=== PATIENT | male | born 1935 | race Caucasian/White ===

== ENCOUNTER 2017-12-15 08:01 | Emergency (ER) | payer OTHER, MEDICARE ==
--- NOTE | 2017-12-15 09:21 | EDPHY ---
H & P Stated Complaint: fell hit head, on Plavix - Medical/Surgical History Hx Asthma: No Hx Chronic Respiratory Disease: No Hx Diabetes: No Hx Cardiac Disease: Yes Hx Renal Disease: No Hx Cirrhosis: No Hx Alcoholism: No Hx HIV/AIDS: No Hx Splenectomy or Spleen Trauma: No Other PMH: HTN, stroke - Social History Smoking Status: Never smoked Time Seen by Provider: 12/15/17 08:30 Constitutional: Initial Vital Signs Temperature (C) 36.8 C 12/15/17 08:07 Heart Rate 79 12/15/17 08:07 Respiratory Rate 18 12/15/17 08:07 Blood Pressure 185/95 H 12/15/17 08:07 O2 Sat (%) 94 12/15/17 08:07 O2 Delivery Mode Room Air Allergies/Adverse Reactions: propoxyphene [From Darvon] Allergy (Verified 12/15/17 08:06) Home Medications: Medication Instructions Recorded HCTZ (*) 12/15/17 Lisinopril 12/15/17 Plavix 12/15/17 Medical Decision Making - Diagnostics Imaging: Discussed imaging studies w/ government property inspector Radiologist, I viewed and interpreted images myself - Diagnostics Imaging Results: Imaging Impressions Head CT 12/15/17 08:27 Impression: Underlying cerebral and cerebellar atrophy and white matter disease, with remote ischemic injury to the right basal ganglia and centrum semiovale. No acute intracranial hemorrhage, cortical ischemia, mass or mass effect. Results discussed with Dr. Jose Wolf at 9:00 AM at the time of the interpretation. Procedures: Procedure: Laceration repair. Verbal consent was obtained from the patient. The 9 cm x 2 cm, simple, deep laceration on the forehead was anesthetized in the usual fashion 6 mL of 1% lidocaine with epinephrine. The wound was irrigated, draped and explored to its base with a gloved finger. There were no deep structures involved. No tendon injury was identified. The wound was repaired with #7, 5-0 Prolene in simple interrupted pattern. Surgifoam and clean sterile dressing applied. The procedure was performed by myself. (Carlie Arias) ED Course/Re-evaluation: CHIEF COMPLAINT: Head injury HISTORY OF PRESENT ILLNESS: The patient is an 82 y/o male on Plavix with a history of CVA with residual left-sided deficits who arrives with his for evaluation of a head injury secondary to a fall this morning. He says he was getting out of bed this morning and tripped on the rug causing him to fall and strike the top of his head on corner of the nightstand. He did not lose consciousness. He denies any other injuries, acute weakness, paresthesias, vision changes, or other complaints. REVIEW OF SYSTEMS: A comprehensive 10 system review of systems is otherwise negative aside from elements mentioned in the history of present illness and medical decision making. PHYSICAL EXAM: HR, BP, O2 Sat, RR. Temp noted General Appearance: Alert, well hydrated, appropriate, and non-toxic appearing. Head: 9cm x2cm deep, linear laceration to top of scalp. Eyes: Pupils equal, round, reactive to light and accommodation, EOMI, no trauma , no injection. Ears: Clear bilaterally, no perforation, normal landmarks Nose: Atraumatic, no rhinorrhea, clear. Throat: There is no erythema or exudates, no lesions, normal tonsils, mucus membranes moist. Neck: Supple, non-tender, no lymphadenopathy. Respiratory: No retractions, no distress, no wheezes, and no accessory muscle use. Lungs are clear to auscultation bilaterally. Cardiovascular: Regular rate and rhythm, no murmurs, rubs, or gallops. Good capillary refill all extremities. Gastrointestinal: Abdomen is soft, non-tender, non-distended, no masses, no rebound, no guarding, no peritoneal signs. Musculoskeletal: Normal active ROM of all extremities, atraumatic. Neurological: Alert, appropriate, and interactive. Nonfocal apart from baseline left-sided weakness. Skin: No rashes, good turgor, no nodules on palpation. PAST MEDICAL HISTORY: CVA with left-sided weakness - Plavix PAST SURGICAL HISTORY: Noncontributory SOCIAL HISTORY: at bedside. Daughter is radiologist at . DIAGNOSTICS/PROCEDURES/CRITICAL CARE TIME: Head CT: negative for acute process. Laceration repair by NICHOLAS Arias. DIFFERENTIAL DIAGNOSIS: The differential diagnosis for the patient's head injury included but was not limited to concussion, skull fracture, intra- parenchymal contusion, subarachnoid, subdural and epidural hematoma. MEDICAL DECISION MAKING: This is an 82 y/o male on Plavix with residual left-sided weakness from a CVA who presents with an isolated large laceration to the top of his scalp. Neuro exam is at baseline. Due to age and anticoagulation status, head CT performed to rule out hemorrhage, which was negative for acute findings. Plan for wound care and repair by NICHOLAS Arias then discharge home with standard care and follow up instructions. (Jose Wolf) Departure - Departure Disposition: Home, Routine, Self-Care Clinical Impression: Scalp laceration Qualifiers: Encounter type: initial encounter Qualified Code(s): S01.01XA - Laceration without foreign body of scalp, initial encounter Condition: Good Instructions: Laceration (ED) Additional Instructions: 1. Return for suture removal in 5-7 days. 2. Do not remove dressing for the next 2 days. Then okay to clean gently with soap and water. Apply thin layer of Bacitracin to wound until healed. 3. Follow up with your primary care provider as needed. 4. Return to the ED for severe pain, new weakness or numbness, speech difficulty , vision changes, fever, or other worsening of condition. Referrals: Demond Gabriel MD [Primary Care Provider] - As per Instructions Report Scribed for: Jose Wolf Report Scribed by: Zuleyma Torres Date of Report: 12/15/17 Time of Report: 09:09
[2017-12-15 10:15] VITALS: BP 173/94
== END 2017-12-15 10:16 | disposition home or self-care (01) ==
PROC: 0HQ1XZZ Repair Face Skin, External Approach (ICD-10-PCS; principal; 2017-12-15)
DX: S01.01XA Laceration without foreign body of scalp, initial encounter (principal); I10 Essential (primary) hypertension; W01.198A Fall on same level from slipping, tripping and stumbling with subsequent striking against other object, initial encounter; Y92.013 Bedroom of single-family (private) house as the place of occurrence of the external cause; Z86.73 Personal history of transient ischemic attack (TIA), and cerebral infarction without residual deficits

== ENCOUNTER 2017-12-16 19:43 | Emergency (ER) | payer OTHER, MEDICARE ==
[2017-12-16] MEDS ORDERED: LISINOPRIL/HCTZ 20/12.5MG 1 EA TAB PO SCH (20:00)
--- NOTE | 2017-12-16 20:06 | EDPHY ---
H & P Stated Complaint: "HIGH BP", fall yesterday Time Seen by Provider: 12/16/17 19:55 HPI/ROS: CHIEF COMPLAINT: My blood pressure HISTORY OF PRESENT ILLNESS: The patient is a 82-year-old man who fell yesterday getting out of bed and hit his head on the nightstand. He sustained a laceration to his upper forehead that was repaired here. He had a head CT that was negative. He has had increased bruising that has gravitated to his nose and eyes today. The patient denies headache. No altered mental status. No neck pain. The patient's asked her friend who is a retired physician to come and tell them if the bruising was normal. He is on Plavix. While he was there the retired physician checked the patient's blood pressure was 200/ 90. His baseline blood pressure was around 140/80. He suggested the patient come to the ER because he has a history of stroke several years ago. The patient remains asymptomatic. No chest pain or shortness of breath. He takes hydrochlorothiazide, losartan and lisinopril all in the morning. He has not taken any extra doses this evening. No double vision or hearing changes. Severity: Minimal Modifying factors: None REVIEW OF SYSTEMS: Constitutional: denies: chills, fever, recent illness, recent injury EENTM: See HPI denies: blurred vision, double vision, nose congestion Respiratory: denies: cough, shortness of breath Cardiac: denies: chest pain, irregular heart rate, lightheadedness, palpitations Gastrointestinal/Abdominal: denies: abdominal pain, diarrhea, nausea, vomiting, blood streaked stools Genitourinary: denies: dysuria, frequency, hematuria, pain Musculoskeletal: denies: joint pain, muscle pain Skin: See HPI Neurological: denies: headache, numbness, paresthesia, tingling, dizziness, weakness Hematologic/Lymphatic: denies: blood clots, easy bleeding, easy bruising Immunologic/allergic: denies: HIV/AIDS, transplant 10 systems reviewed and negative except as noted EXAM: GENERAL: Well-appearing, well-nourished and in no acute distress. HEAD: Bruising to the nasal bridge in both eyes. Laceration repaired. EYES: Pupils equal round and reactive to light, extraocular movements intact, sclera anicteric, conjunctiva are normal. Vision normal. ENT: TMs normal, nares patent, oropharynx clear without exudates. Moist mucous membranes. NECK: Normal range of motion, supple without lymphadenopathy or JVD. LUNGS: Breath sounds clear to auscultation bilaterally and equal. No wheezes rales or rhonchi. HEART: Regular rate and rhythm without murmurs, rubs or gallops. ABDOMEN: Soft, nontender, normoactive bowel sounds. No guarding, no rebound. No masses appreciated. BACK: No CVA tenderness, no spinal tenderness, step-offs or deformities EXTREMITIES: Normal range of motion, no pitting or edema. No clubbing or cyanosis. NEUROLOGICAL: Cranial nerves II through XII grossly intact. Normal speech, normal gait. 5/5 strength, normal movement in all extremities, normal sensation , normal reflexes PSYCH: Normal mood, normal affect. SKIN: Bruising as above Source: Patient Exam Limitations: No limitations - Personal History Current Tetanus Diphtheria and Acellular Pertussis (TDAP): Yes - Medical/Surgical History Hx Asthma: No Hx Chronic Respiratory Disease: No Hx Diabetes: No Hx Cardiac Disease: Yes Hx Renal Disease: No Hx Cirrhosis: No Hx Alcoholism: No Hx HIV/AIDS: No Hx Splenectomy or Spleen Trauma: No Other PMH: HTN, stroke 2013 - Family History Significant Family History: No pertinent family hx - Social History Smoking Status: Never smoked Alcohol Use: Sober Drug Use: None Constitutional: Initial Vital Signs Temperature (C) 36.6 C 12/16/17 19:44 Heart Rate 83 12/16/17 19:44 Respiratory Rate 94 H 12/16/17 19:44 Blood Pressure 217/96 H 12/16/17 19:44 O2 Sat (%) 95 12/16/17 19:44 O2 Delivery Mode Room Air Allergies/Adverse Reactions: propoxyphene [From Darvon] Allergy (Verified 12/16/17 19:44) Home Medications: Medication Instructions Recorded HCTZ (*) 12/15/17 Lisinopril 12/15/17 Plavix 12/15/17 Citracal 12/16/17 Escitalopram Oxalate 12/16/17 Losartan Potassium 12/16/17 SIMVASTATIN 12/16/17 Medical Decision Making ED Course/Re-evaluation: The patient's is concerned about his elevated blood pressure. The patient is asymptomatic. We discussed the bruising in his face which is completely normal. I advised them that it may worsen tomorrow. We discussed the the risk of treating hypertension acutely when he is asymptomatic and the risk of dropping his blood pressure too low. We agreed to give him an extra dose of his medication this evening and observe. 9:30 p.m. the patient's blood pressure is now 180/80. He remains asymptomatic and is eager to go home. Encouraged him to return to his normal regimen and keep a journal of his blood pressures to follow-up. Patient and for grateful and declines further workup or testing at this time. Differential Diagnosis: Partial list of the Differential diagnosis considered include but were not limited to; hypertension, anxiety and although unlikely based on the history and physical exam, I also considered intracranial hemorrhage, fracture, CVA. I discussed these differential diagnoses and the plan with the patient as well as the usual and expected course. The patient understands that the diagnosis is provisional and that in medicine we are not always correct and that further workup is often warranted. Usual and customary warnings were given. All of the patient's questions were answered. The patient was instructed to return to the emergency department should the symptoms at all worsen or return, otherwise to followup with the physician as we discussed. - Data Points Medications Given: Discontinued Medications Lisinopril/HCTZ (Zestoretic) 1 ea PO DAILY TITA Stop: 06/14/18 19:59 Last Admin: 12/16/17 21:17 Dose: Not Given Lisinopril/HCTZ (Zestoretic) 1 ea PO EDNOW ONE Stop: 12/16/17 20:31 Last Admin: 12/16/17 20:33 Dose: 1 ea Lisinopril/HCTZ (Zestoretic) 1 ea PO EDNOW ONE Stop: 12/16/17 20:09 Last Admin: 12/16/17 21:17 Dose: Not Given Departure - Departure Disposition: Home, Routine, Self-Care Clinical Impression: Anxiety about health Hypertension Qualifiers: Hypertension type: essential hypertension Qualified Code(s): I10 - Essential ( primary) hypertension Facial bruising Qualifiers: Encounter type: subsequent encounter Qualified Code(s): S00.83XD - Contusion of other part of head, subsequent encounter Condition: Fair Instructions: Contusion in Adults (ED), Hypertension (ED) Referrals: Demond Gabriel MD [Primary Care Provider] - As per Instructions
[2017-12-16] MEDS ORDERED: LISINOPRIL/HCTZ 20/12.5MG 1 EA TAB PO ONE ×2 (20:08→20:30)
[2017-12-16 21:20] VITALS: BP 188/88
== END 2017-12-16 21:43 | disposition home or self-care (01) ==
DX: I10 Essential (primary) hypertension (principal); Z86.73 Personal history of transient ischemic attack (TIA), and cerebral infarction without residual deficits; S01.01XA Laceration without foreign body of scalp, initial encounter; W01.198A Fall on same level from slipping, tripping and stumbling with subsequent striking against other object, initial encounter; Y92.013 Bedroom of single-family (private) house as the place of occurrence of the external cause

== ENCOUNTER 2018-06-17 18:22 | Inpatient (IN) | payer OTHER, MEDICARE ==
[2018-06-17] MEDS ORDERED: NS 500 ML IV ONE (18:44)
--- NOTE | 2018-06-17 18:46 | CPEKG ---
Test Reason : OPEN Blood Pressure : / mmHG Vent. Rate : 066 BPM Atrial Rate : 064 BPM P-R Int : 195 ms QRS Dur : 162 ms QT Int : 491 ms P-R-T Axes : 068 -58 012 degrees QTc Int : 515 ms Sinus rhythm Right bundle branch block Inferior infarct, old Confirmed by Jolene Gutierrez ([id number]) on 06/17/2018 6:46:02 PM Referred By: JOLENE GUTIERREZ Confirmed By:Jolene Gutierrez
--- NOTE | 2018-06-17 18:47 | EDPHY ---
H & P Time Seen by Provider: 06/17/18 18:33 HPI/ROS: Chief complaint. Shortness of breath HPI. Patient is an 83-year-old male with shortness of breath for 5 days. He is quite comfortable at rest but has dyspnea with walking a short distance across the room as well as with talking as stop and catch his breath. No fever or cough. Does not have chest discomfort. No discomfort with deep breathing. No unusual leg pain or swelling. No similar symptoms previously no abdominal pain or vomiting or diarrhea. He was seen by his PCP earlier today and had a chest x-ray that showed no pneumonia. He had a normal CBC. D-dimer slightly elevated at 0.58. BNP mildly elevated at 502. His creatinine was normal at 1.0 and troponin was normal. He was referred here for concerns of pulmonary embolus ROS 10 systems were reviewed and negative with the exception of the elements mentioned in the history of present illness Past Medical/Surgical History: Hypertension and CVA in 2012 Social History: , nonsmoker, no alcohol Smoking Status: Never smoked Physical Exam: General Appearance: Alert pleasant well-developed male mild distress vital signs significant for blood pressure 216/94. O2 saturation 93% on room air Eyes: Pupils equal and round no pallor or injection. ENT, Mouth: Mucous membranes are moist. Respiratory: There are no retractions, lungs are clear to auscultation. Cardiovascular: Regular rate and rhythm. Gastrointestinal: Abdomen is soft and nontender, no masses, bowel sounds normal. Neurological: Awake and alert, sensory and motor exams grossly normal. Skin: Warm and dry, no rashes. Musculoskeletal: Neck is supple nontender. Extremities symmetrical, full range of motion. Trace pedal edema Psychiatric: Patient is oriented X 3, there is no agitation. Constitutional: Initial Vital Signs Temperature (C) 36.3 C 06/17/18 18:25 Heart Rate 74 06/17/18 18:25 Respiratory Rate 18 06/17/18 18:25 Blood Pressure 216/94 H 06/17/18 18:25 O2 Sat (%) 93 06/17/18 18:25 O2 Delivery Mode Room Air Allergies/Adverse Reactions: propoxyphene [From Darvon] Allergy (Verified 12/16/17 19:44) Home Medications: Medication Instructions Recorded Clopidogrel Bisulfate [Plavix (*)] 75 mg PO DAILY 06/17/18 Escitalopram Oxalate [Lexapro] 10 mg PO HS 06/17/18 Herbals/Supplements -Info Only 1 ea PO DAILY 06/17/18 Hydrochlorothiazide [HCTZ (*)] 25 mg PO DAILY 06/17/18 Leuprolide Acetate [Lupron Depot] 11.25 mg IM .[id number] 06/17/18 Losartan Potassium 100 mg PO DAILY 06/17/18 Simvastatin [Zocor] 40 mg PO HS 06/17/18 Medical Decision Making - Diagnostics EKG Interpretation: EKG interpreted by me shows normal sinus rhythm normal interval with left axis deviation. Right bundle branch block present. No significant ST elevation or depression. No arrhythmia. The rate is 66 No previous EKG for comparison Imaging Results: Imaging Impressions Chest/Thorax CTA 06/17/18 18:45 Impression: 1. No evidence for acute pulmonary embolism, aortic dissection, or pneumonia. Anthony Gutierrez was notified of these findings by telephone at 7:56 PM on 06/17/2018 Chest x-ray from earlier today reviewed by me and I agree no evidence for pneumonia CT chest significant for emphysema. No evidence for PE, aortic dissection or pneumonia Procedures: IV normal saline. 500 cc fluid bolus prior to IV contrast for CT chest Repeat troponin is 0 ED Course/Re-evaluation: Re-evaluation at 8:00 p.m.. Patient and I discussed imaging lab EKG findings. We discussed treatment plan including recommendation for admission. He expresses understanding and agreement I consulted and discussed the case with , hospitalist, who agrees to the admission Differential Diagnosis: I considered pulmonary embolus and acute coronary syndrome. This is likely COPD exacerbation and mild CHF. - Data Points Laboratory Results: 06/17/18 18:51 POC Troponin I 0.00 ng/mL ng/mL (0.00-0.08) Medications Given: Discontinued Medications Albuterol/Ipratropium (Duoneb) 3 ml IH EDNOW ONE Stop: 06/17/18 20:05 Last Admin: 06/17/18 20:07 Dose: 3 ml Sodium Chloride (Ns) 500 mls @ 1,000 mls/hr IV EDNOW ONE PRN Reason: Protocol Stop: 06/17/18 19:13 Last Admin: 06/17/18 18:53 Dose: 500 mls Methylprednisolone Sodium Succinate (Solu-Medrol) 125 mg IVP EDNOW ONE Stop: 06/17/18 20:05 Last Admin: 06/17/18 20:07 Dose: 125 mg Point of Care Test Results: Chemistry 06/17/18 18:51 POC Troponin I 0.00 ng/mL ng/mL (0.00-0.08) Departure - [facility] Clinical Impression: Dyspnea Qualifiers: Dyspnea type: dyspnea on exertion Qualified Code(s): R06.09 - Other forms of dyspnea Condition: Good
[2018-06-17] MEDS ORDERED: IOPAMIDOL (ISOVUE 370) 100 ML BTL IV ONE (18:55)
[2018-06-17] MEDS ORDERED: IPRATROPIUM/ALBUTEROL 3 ML DEYVIAL IH ONE (20:04)
[2018-06-17] MEDS ORDERED: methylPREDNISolone SOD SUCC 125 MG/2 ML VIAL IVP ONE (20:04)
[2018-06-17] MEDS ORDERED: ACETAMINOPHEN 325 MG TAB PO PRN (23:05)
[2018-06-17] MEDS ORDERED: ONDANSETRON 4 MG/2 ML VIAL IVP PRN (23:05)
[2018-06-17] MEDS ORDERED: ONDANSETRON DISINTEGRATING 4 MG TAB PO PRN (23:05)
[2018-06-17] MEDS ORDERED: ALBUTEROL 3 ML DEYVIAL IH PRN (23:05)
[2018-06-17] MEDS: hydrALAZINE 10 MG TAB PO PRN (23:59)
--- NOTE | 2018-06-18 01:03 | PDGENHP ---
History and Physical - Chief Complaint Shortness of breath - History of Present Illness Source-patient provides history appears reliable. EMR was reviewed and case discussed with ED provider. HPI-this very pleasant 83-year-old gentleman with past medical history significant for prostate cancer in remission, HLD, HTN, depression, history CVA in 2012 on Plavix who presents emergency department today at recommendation of his PCP Dr. Gabriel for evaluation of shortness of breath. Patient reports that he has had progressive dyspnea on exertion for the past 5 days. Denies any fevers, chills, cough, chest pain or pleurisy. Patient also denies any nausea vomiting diarrhea. Patient reports that he did not really appreciate any symptoms until his in his daughter commented on his apparent dyspnea on exertion. Patient does have a 50 pack-year history. He quit smoking in 2013 following a stroke. Patient denies any lower extremity edema, orthopnea, PND. History Information - Allergies/Home Medication List Allergies/Adverse Reactions: propoxyphene [From Darvon] Allergy (Verified 12/16/17 19:44) Home Medications: Clopidogrel Bisulfate [Plavix (*)] 75 mg PO DAILY 06/17/18 [Last Taken 06/17/18] Escitalopram Oxalate [Lexapro] 10 mg PO HS 06/17/18 [Last Taken 06/16/18] Herbals/Supplements -Info Only 1 ea PO DAILY 06/17/18 [Last Taken Unknown] Hydrochlorothiazide [HCTZ (*)] 25 mg PO DAILY 06/17/18 [Last Taken 06/17/18] Leuprolide Acetate [Lupron Depot] 11.25 mg IM .[id number] 06/17/18 [Last Taken 07/31] Losartan Potassium 100 mg PO DAILY 06/17/18 [Last Taken 06/17/18] Simvastatin [Zocor] 40 mg PO HS 06/17/18 [Last Taken 06/16/18] I have personally reviewed and updated: family history, medical history, social history, surgical history - Past Medical History Additional medical history: Prostate cancer status post proton therapy and continued Lupron. HLD. HTN. CVA in 2012 on Plavix. Depression. Colonic polyps - Surgical History Additional surgical history: Repair right retinal detachment. Partial colectomy. Laminectomy - Family History Additional family history: Patient denies any family history of lung cancer or COPD. Patient reports that his daughter is healthy - Social History Smoking Status: Former smoker Tobacco Use: Cigarettes (Fifty pack-year history. Patient quit 2012 following a stroke) Alcohol Use: Occasionally (One glass of Wine with dinner 1-2 times per week) Drug Use: None Additional social history: Patient is lives with his . His daughter who is a local radiologist provides excellent support. Cor status- full. Patient reports he has advanced directives/living will he and his just completed. Review of Systems Review of Systems: ROS: 10pt was reviewed & negative except for what was stated in HPI & below Physical Exam Physical Exam: Selected Entries 12/15/17 08:07 Blood Pressure Automatic Method Heart Rate 79 Respiratory 18 Rate O2 Sat (%) 94 Temperature (C) 36.8 C Blood Pressure 185/95 H Mean Arterial 125 H Pressure (MAP) O2 Delivery Room Air Mode Temperature Oral Source Temp Pulse Resp BP Pulse Ox 36.6 C 77 24 H 198/94 H 91 L 06/17/18 23:53 06/17/18 23:53 06/17/18 23:53 06/17/18 23:53 06/17/18 23:53 Constitutional: no apparent distress, chronically ill appearing, obese, other ( NAD. Pleasant obese elderly gentleman is lying comfortably in bed awake.) Eyes: PERRL (Pupils are nearly pinpoint but symmetric.), anicteric sclera, EOMI , No scleral injection Ears, Nose, Mouth, Throat: moist mucous membranes, hard of hearing, No poor dentition Cardiovascular: regular rate and rhythym, no murmur, rub, or gallop (Slightly distant heart sounds.), pulses symmetric bilaterally, No edema Peripheral Pulses: 2+: dorsalis-pedis (R), dorsalis-pedis (L) Respiratory: no respiratory distress, reduced air movement (Patient air movement is quite diminished in the middle and lower lung quispe.), No expiratory wheeze, No inspiratory crackles Gastrointestinal: normoactive bowel sounds, soft, non-tender abdomen, no palpable masses, other (Midline surgical abdominal scar well healed.), No distension Genitourinary: no bladder tenderness, No gomez in urethra Skin: warm, normal color, no rashes or abrasions, No rash Musculoskeletal: full muscle strength (Patient is able to sit up independently. Strength 5/5 in upper lower extremities while lying in bed.), No pain with ROM Psychiatric: interacting appropriately, not anxious, not encephalopathic, thought process linear, No poor insight, No poor judgement, No poor memory Lab Data & Imaging Review POC Troponin I 0.00 ng/mL (0.00-0.08) 06/17/18 18:51 Laboratory Tests 06/17/18 06/17/18 06/17/18 13:44 13:44 13:44 WBC 5.53 RBC 4.76 Hgb 15.0 Hct 43.8 MCV 92.0 MCH 31.5 MCHC 34.2 RDW 12.7 Plt Count 270 MPV 9.0 Neut % (Auto) 62.5 Lymph % (Auto) 23.0 [place] % (Auto) 11.2 Eos % (Auto) 1.6 Baso % (Auto) 1.3 Nucleat RBC Rel Count 0.0 Absolute Neuts (auto) 3.46 Absolute Lymphs (auto) 1.27 Absolute Monos (auto) 0.62 Absolute Eos (auto) 0.09 Absolute Basos (auto) 0.07 Absolute Nucleated RBC 0.00 Immature Gran % 0.4 Immature Gran # 0.02 D-Dimer 0.58 H Sodium 133 L Potassium 3.3 L Chloride 91 L Carbon Dioxide 29 Anion Gap 13 BUN 21 Creatinine 1.0 Estimated GFR > 60 Glucose 113 H Calcium 9.4 Creatine Kinase 94 POC Troponin I Troponin I < 0.012 NT-Pro-B Natriuret Pep 502 H TSH 3.650 06/17/18 18:51 WBC RBC Hgb Hct MCV MCH MCHC RDW Plt Count MPV Neut % (Auto) Lymph % (Auto) [place] % (Auto) Eos % (Auto) Baso % (Auto) Nucleat RBC Rel Count Absolute Neuts (auto) Absolute Lymphs (auto) Absolute Monos (auto) Absolute Eos (auto) Absolute Basos (auto) Absolute Nucleated RBC Immature Gran % Immature Gran # D-Dimer Sodium Potassium Chloride Carbon Dioxide Anion Gap BUN Creatinine Estimated GFR Glucose Calcium Creatine Kinase POC Troponin I 0.00 Troponin I NT-Pro-B Natriuret Pep TSH Imaging Review: Chest, PA and Lateral History: Dyspnea, R06.09 Comparison: None Findings: Lung volumes are mildly prominent. Lungs are clear, without infiltrate or consolidation. The peripheral upper lung zone pulmonary vascularity is sparse suggesting underlying emphysema. Heart size is normal. There is atherosclerotic calcification of the aortic arch and proximal brachiocephalic vessels. There is no adenopathy or mass lesion. There is no pleural effusion or pneumothorax. There is prominent osteophytosis in the spine suggesting DISH and/ or ankylosing spondylitis. Bones are unremarkable for age. Impression: 1. Suspect emphysema. No pneumonia. 2. Atherosclerotic disease. 3. Bridging osteophytosis in the mid and lower thoracic spine. Dictated By: Anand Franco MD Chest CTA With IV Contrast History: Dyspnea. Technique: Ultrafast ultrathin [address] obtained through the chest after bolus administration of Isovue 370 nonionic contrast without complication. Soft tissue and bone window evaluation is performed. Dose reduction techniques were utilized. CT Chest: Findings: There is moderate centrilobular emphysema with mild peribronchial thickening. There is no evidence of pneumonia, pleural effusion, mass or pneumothorax. Heart size is mildly enlarged, there is no pericardial effusion. Coronary artery calcification is seen. Multilevel thoracic spondylosis is seen with anterior flowing marginal osteophytes suggestive of diffuse idiopathic skeletal hyperostosis. CT Pulmonary Angiogram: Technique: Multiplanar and 3D reconstructions are reviewed on an independent 3D workstation. Findings: No filling defects or mural thickening is detected. Specifically, no evidence for acute or chronic pulmonary embolism. Extensive aortic atherosclerotic calcification is seen without dissection or rupture.. Impression: 1. No evidence for acute pulmonary embolism, aortic dissection, or pneumonia. Anthony Gutierrez was notified of these findings by telephone at 7:56 PM on 06/17/2018 Dictated By: Toño Monson MD Visualized and Interpreted Chest x-ray results: Yes Chest X-Ray results: no infiltrate Visualized and Interpreted imaging results: Yes EKG additional interpertation: NSR 60s. no acute ST changes. RBBB. q waves inferior leads II, III. QTc 515. Assessment & Plan Assessment: this very pleasant 83-year-old gentleman with past medical history significant for prostate cancer in remission, HLD, HTN, depression, history CVA in 2013 on Plavix who presents emergency department today at recommendation of his PCP Dr. Gabriel for evaluation of shortness of breath #Dyspnea (Acute) - patient without o2 requirement at this time. CXR and CT c/w emphysema/COPD, neg for evidence of PE, PNA, Pneumothorax. s/p steroids, nebs with improved symptoms. #emphysema/COPD exacerbation - improved. see plan above. #hypoxia - exertional pulse ox before discharge to ensure patient without any oxygen needs. #accelerated HTN - patient symptomatic. resume home medications HCTZ. hydralazine prn. #hypokalemia - mildly declined. pt tolerating PO at this time. repeat in AM and replace prn. chronic medical issues #HLD - continue statin #prostate ca on lupron q3 mo #hx CVA without sequelae - continue plavix. FEN - s/p IVF in ED. patient tolerating PO intake and will encourage. repeat AM labs and replace prn. PPX - SCDs. on plavix. COR - FULL Dispo - Patient admitted to observation status on med/surg floor for management of copd exacerbation. Anticipate less than 2 midngiht stay given patient report of improving sx.
[2018-06-18] MEDS ORDERED: POTASSIUM CL 20 MEQ TAB PO ONE (04:56)
[2018-06-18] MEDS: LOSARTAN/HCTZ 50/12.5 1 TAB PO SCH ×2 (05:14→08:52)
[2018-06-18] MEDS: IPRATROPIUM/ALBUTEROL 3 ML DEYVIAL IH SCH ×2 (05:44→13:46)
[2018-06-18 05:48] LABS: PLATELET COUNT 279 10^3/uL (150-400)
[2018-06-18] MEDS: ENOXAPARIN 40 MG/0.4 ML SYR SC SCH (08:52)
[2018-06-18] MEDS ORDERED: methylPREDNISolone SOD SUCC 125 MG/2 ML VIAL IVP SCH (09:00)
--- NOTE | 2018-06-18 11:16 | ASMTCMCOM ---
CM Note CM Note Notes: Pt is a 83 yo M, lives with , dtr supportive. Sent to [facility] by PCP due to shortness of breath. Pt has history of prostate cancer (in remission), HLD, HTN, depression, and CVA in 2012. OT eval pending. CM to follow. Plan:TBD Date Signed: 06/18/2018 11:15 AM Electronically Signed By:JENNIFER Franz
[2018-06-18] MEDS: hydrALAZINE 10 MG TAB PO PRN (11:57)
[2018-06-18] MEDS ORDERED: NON-FORMULARY NEW DRUG (Losartan Potassium [Losartan Potassium] 100 MG) PO SCH (13:15)
[2018-06-18] MEDS ORDERED: HYDROCHLOROTHIAZIDE 25 MG TAB PO SCH (13:15)
[2018-06-18] MEDS: CLOPIDOGREL BISULFATE 75 MG TAB PO SCH (13:42)
--- NOTE | 2018-06-18 14:13 | HOSPPROG ---
Hospitalist Progress Note Assessment/Plan: #Dyspnea: from emphysema. CTA negative for PE, PNA. Normal trop x 2, EKG. BNP pending #Accelerated HTN: asymptomatic and no end-organ damage. Start Norvasc (newly prescribed yesterday) #h/o CVA: plavix, statin #h/o prostate cancer: Lupron Disp: monitor BP overnight. Added Norvasc, IV hydral PRN. If improved, DC tomorrow Direct care time spent: 30min reviewing records, bedside and speaking with daughter on phone (12:15-12:45) Subjective: no chest pain, JOSEPH Objective: Vital Signs Temp Pulse Resp BP Pulse Ox 36.6 C 85 18 180/78 H 91 L 06/18/18 11:47 06/18/18 13:46 06/18/18 13:46 06/18/18 13:41 06/18/18 13:46 Laboratory Results 06/18/18 05:01 06/18/18 05:01 06/17/18 06/18/18 06/19/18 05:59 05:59 05:59 Intake Total 700 Output Total 901 125 Balance -201 -125 - Time Spent With Patient Time Spent with Patient: greater than 25 minutes Time Spent with Patient: Greater than 25 minutes spent on this patients care, greater than 50% of time spent counseling, educating, and coordinating care regarding the above mentioned plan. ICD10 Worksheet Patient Problems: Problems Problem Status Onset Dyspnea Acute
[2018-06-18] MEDS ORDERED: IPRATROPIUM/ALBUTEROL 3 ML DEYVIAL IH PRN (14:30)
[2018-06-18] MEDS ORDERED: ESCITALOPRAM OXALATE 10 MG TAB PO SCH (21:00)
[2018-06-18] MEDS ORDERED: ATORVASTATIN CALCIUM 20 MG TAB PO SCH (21:00)
[2018-06-18] MEDS ORDERED: PROTOCOL POTASSIUM 1 DOSE MISC PRN (21:25)
[2018-06-18] MEDS ORDERED: POTASSIUM CL 10 MEQ TAB PO ONE (21:29)
[2018-06-19] MEDS ORDERED: POTASSIUM CL 10 MEQ TAB PO ONE (08:09)
[2018-06-19] MEDS: LOSARTAN/HCTZ 50/12.5 1 TAB PO SCH (08:15)
[2018-06-19] MEDS: CLOPIDOGREL BISULFATE 75 MG TAB PO SCH (08:16)
[2018-06-19] MEDS: ENOXAPARIN 40 MG/0.4 ML SYR SC SCH (08:16)
[2018-06-19] MEDS ORDERED: Herbals/Supplements -Info Only PO SCH (09:00)
[2018-06-19] MEDS ORDERED: predniSONE 20 MG TAB PO SCH (09:00)
--- NOTE | 2018-06-19 11:21 | PDMN ---
Medical Necessity Medical necessity: Change to IP, as of 06/18/18, per MD & MCG M-100 COPD; los >2 mn for ongoing management of emphysema w/dyspnea, accelerated htn & hypokalemia ; requiring further workup/monitoring & med management; comorbid advanced age, CVA
[2018-06-19 15:18] VITALS: BP 165/80
--- NOTE | 2018-06-19 15:40 | GDS ---
[f rep st] DISCHARGE SUMMARY DISCHARGE DIAGNOSES: 1. Hypokalemia. 2. Dyspnea. 3. Emphysema. 4. Accelerated hypertension. 5. History of cerebrovascular accident, history of prostate cancer. 6. Hyperlipidemia. 7. Depression. HISTORY OF PRESENT ILLNESS: A pleasant 83-year-old male with hypertension, prostate cancer in [facility]. Presents to the ER at the recommendation of PCP Dr. Gabriel for evaluation of shortness of br eath. The family was concerned noticing that he has had increased dyspnea on exertion for the past f ew days. When I talked to the patient, he does not endorse. He feels more tired with some of the ex ercises he has been doing. He has been increasing the intensity of these at home. Denies PND, eddie w orthopnea, chest pain, or lower extremity edema. Denies cough, fevers, chills, or sweats. He has a 50 pack-year history tobacco. Quit in 2012 after stroke. HOSPITAL COURSE BY PROBLEM: 1. Dyspnea: Suspect related to emphysema and increased exercise regimen at home. Had [address] negative [address] oponins. BNP was mildly elevated at 771, but that is expected given age. No evidence of volume over load on exam or x-ray. If symptoms persist, recommend outpatient echocardiogram. This was discussed with patient and . 2. Hypokalemia. Repleted. 3. Accelerated hypertension: Was started on Norvasc 2.5 yesterday by PCP, but had not taken a dose. I started this in the hospital. Blood pressure remained elevated, so this is increased to 5 mg surendra ly. Has followup with Dr. Gabriel on Friday. 4. History of CVA in 2012: Statin, Plavix. 5. Depression. Home medications. 6. History of prostate cancer in remission, on Lupron. DISPOSITION: Patient is stable for discharge home with his . MEDICATION: Changes: Increase Norvasc to 5 mg daily. FOLLOW UP: Dr. Gabriel on 06/22/2018 for blood pressure. PHYSICAL EXAMINATION: VITAL SIGNS: Today, temperature 36.5, blood pressure 176/72, heart rate in 70 s, respirations 16, 98% on room air general he is in no acute distress. HEENT: PERRLA. Moist mucou s membranes. CV: Regular rate and rhythm. No lower extremity edema. LUNGS: Diminished throughout but no wheezes or crackles. ABDOMEN: Soft, nontender, nondistended. Positive bowel sounds. : N o Cardoza. MUSCULOSKELETAL: 5/5 upper lower extremity strength. Time spent on discharge: Greater than 30 minutes counseling patient, , home medications, followu p and coordinating discharge. /[id number]/MODL
--- NOTE | 2018-06-24 08:37 | CPEKG ---
Test Reason : OPEN Blood Pressure : / mmHG Vent. Rate : 070 BPM Atrial Rate : 070 BPM P-R Int : 191 ms QRS Dur : 155 ms QT Int : 497 ms P-R-T Axes : 067 -52 005 degrees QTc Int : 537 ms Sinus rhythm Right bundle branch block Inferior infarct, old Unchanged in comparison to prior Confirmed by René Valente ([id number] on 06/24/2018 8:36:59 AM Referred By: Deneen Carrillo Confirmed By:Reén Valente
[2018-08-15] MEDS ORDERED: LEUPROLIDE ACETATE IM SCH (13:15)
== END 2018-06-19 16:22 | disposition home or self-care (01) | DRG 192 ==
LOC: INTOOBSV 20:14 → F3N 21:48 → OBSVTOIN 06-18 15:32
PROVIDERS: ADMIT Family Medicine; ATTEND Internal Medicine
DX: J43.2 Centrilobular emphysema (principal); E87.6 Hypokalemia; I10 Essential (primary) hypertension; E66.09 Other obesity due to excess calories; Z68.30 Body mass index [BMI] 30.0-30.9, adult; E78.5 Hyperlipidemia, unspecified; Z87.891 Personal history of nicotine dependence; Z86.73 Personal history of transient ischemic attack (TIA), and cerebral infarction without residual deficits; Z79.02 Long term (current) use of antithrombotics/antiplatelets; F32.9 Major depressive disorder, single episode, unspecified; Z85.46 Personal history of malignant neoplasm of prostate
CPT/HCPCS: 84484-ER; 96374; 97166-GO; 97530-GO; G0378; J1650; J2930; J7512; Q9967

== ENCOUNTER → 2018-06-17 | Outpatient (CLI) | payer OTHER, MEDICARE | LOC: BMCIMAGING 13:32 | PROVIDERS: ATTEND Internal Medicine | DX: J98.4 Other disorders of lung (principal) ==